=== PATIENT | female | born 1980 | race Caucasian/White ===

== ENCOUNTER 2020-10-29 15:21 | Inpatient (IN) | payer OTHER ==
[2020-10-29 17:54] VITALS: BMI 30.7
[2020-10-29] MEDS ORDERED: ACETAMINOPHEN 325 MG TABLET (FP) PO PRN ×2 (18:03)
[2020-10-29] MEDS ORDERED: IBUPROFEN 400 MG TABLET (FP) PO PRN (18:03)
[2020-10-29] MEDS ORDERED: LORazepam 1 MG TABLET PO PRN (18:03)
[2020-10-29] MEDS ORDERED: MAGNESIUM HYDROX 2400MG/30ML ORAL SUSPENSION 30 ML CUP PO PRN (18:03)
[2020-10-29] MEDS ORDERED: MENTHOL/PHENOL 1 EACH UD MM PRN (18:03)
[2020-10-29] MEDS ORDERED: MAG HYDROX/AL HYDROX/SIMETH 30 ML UNIT-DOSE CUP PO PRN (18:03)
[2020-10-29] MEDS ORDERED: MAGNESIUM CITRATE 300 ML BOTTLE PO PRN (18:03)
[2020-10-29] MEDS ORDERED: METHOCARBAMOL 500 MG TABLET PO PRN (18:03)
[2020-10-29] MEDS ORDERED: BISMUTH SUBSALICYLATE 524 MG/30 ML UD PO PRN (18:03)
[2020-10-29] MEDS ORDERED: hydrOXYzine PAMOATE 25 MG CAPSULE (FP) PO PRN (18:03)
[2020-10-29] MEDS ORDERED: NICOTINE POLACRILEX 4 MG GUM BUC PRN (18:03)
[2020-10-29] MEDS: ONDANSETRON *ODT* 4 MG TABLET SL PRN (19:09)
[2020-10-29] MEDS: NICOTINE 21 MG/24 HOURS TOPICAL PATCH TD SCH (19:14)
[2020-10-29] MEDS: PRENATAL VITAMINS W/ FOLIC ACID TABLET (FP) PO SCH (19:14)
[2020-10-29] MEDS: MELATONIN 5 MG TABLETS PO SCH (22:28)
[2020-10-29] MEDS: THIAMINE HCL 100 MG TABLET (FP) PO SCH (22:28)
[2020-10-29] MEDS: LORazepam 2 MG TABLET PO SCH (22:32)
[2020-10-30] MEDS: LORazepam 2 MG TABLET PO SCH ×4 (04:22→22:45)
[2020-10-30] MEDS: ONDANSETRON *ODT* 4 MG TABLET SL PRN ×2 (04:47→18:00)
[2020-10-30] MEDS: NICOTINE 21 MG/24 HOURS TOPICAL PATCH TD SCH (10:40)
[2020-10-30] MEDS: PRENATAL VITAMINS W/ FOLIC ACID TABLET (FP) PO SCH (10:40)
[2020-10-30] MEDS: GABAPENTIN 300 MG CAPSULE PO SCH ×2 (11:51→22:45)
[2020-10-30 13:41] LABS: POTASSIUM 3.6 mmol/L (3.5-5.1)
[2020-10-30 13:44] LABS: HEMATOCRIT 29.5 % (32.4-45.2); HEMOGLOBIN 9.2 GM/dL (10.7-15.3); MCH 24.5 pg (25.7-33.7); MEAN CELL VOLUME 79.1 fl (80-96); PLATELET COUNT 73 K/MM3 (134-434); RBC 3.73 M/mm3 (3.60-5.2); RDW 23.1 % (11.6-15.6); WHITE BLOOD COUNT 3.4 K/mm3 (4.0-10.0)
[2020-10-30 13:50] LABS: ALBUMIN 3.6 g/dl (3.4-5.0); BLOOD UREA NITROGEN 6.8 mg/dL (7-18); CALCIUM 8.7 mg/dL (8.5-10.1)
[2020-10-30 13:53] LABS: CREATININE 0.6 mg/dL (0.55-1.3)
[2020-10-30 13:54] LABS: BILIRUBIN,TOTAL 3.8 mg/dL (0.2-1); TOT PROT 7.8 g/dl (6.4-8.2)
[2020-10-30] MEDS: MELATONIN 5 MG TABLETS PO SCH (22:45)
[2020-10-30] MEDS: THIAMINE HCL 100 MG TABLET (FP) PO SCH (22:45)
[2020-10-31] MEDS: LORazepam 1 MG TABLET PO SCH ×2 (06:22→10:11)
[2020-10-31] MEDS: PRENATAL VITAMINS W/ FOLIC ACID TABLET (FP) PO SCH (10:10)
[2020-10-31] MEDS: GABAPENTIN 300 MG CAPSULE PO SCH (10:11)
[2020-10-31] MEDS: NICOTINE 21 MG/24 HOURS TOPICAL PATCH TD SCH (10:12)
[2020-10-31 11:18] LABS: POTASSIUM 3.6 mmol/L (3.5-5.1)
[2020-10-31 11:31] LABS: CALCIUM 9.1 mg/dL (8.5-10.1); HEMOGLOBIN 10.3 GM/dL (10.7-15.3); LYMPH % 17.5 % (8-40); MONO % 6.4 % (3.8-10.2)
[2020-10-31 11:32] LABS: ALBUMIN 3.9 g/dl (3.4-5.0); BLOOD UREA NITROGEN 8.8 mg/dL (7-18)
[2020-10-31 11:33] LABS: INR 1.65 (0.83-1.09); PROTHROMBIN TIME (PATIENT) 19.7 SEC (9.7-13.0)
[2020-10-31 11:35] LABS: BASO % 0.3 % (0-2.0); CREATININE 0.8 mg/dL (0.55-1.3); EOS % 0.6 % (0-4.5); HEMATOCRIT 32.4 % (32.4-45.2); MCHC 31.8 g/dl (32.0-36.0); MEAN CELL VOLUME 78.6 fl (80-96); MEAN PLT VOLUME 8.7 fl (7.5-11.1); NEUT % 75.2 % (42.8-82.8); PLATELET COUNT 71 K/MM3 (134-434); RBC 4.12 M/mm3 (3.60-5.2); RDW 23.8 % (11.6-15.6); WHITE BLOOD COUNT 3.6 K/mm3 (4.0-10.0)
[2020-10-31 11:36] LABS: BILIRUBIN,TOTAL 4.8 mg/dL (0.2-1)
[2020-10-31 11:37] LABS: TOT PROT 8.7 g/dl (6.4-8.2)
[2020-10-31] MEDS ORDERED: LACTULOSE 20 GM/30 ML UDC (FOR ORAL USE ONLY) PO ONE (12:37)
[2020-10-31 12:41] LABS: ANISOCYTOSIS 3+; MACROCYTOSIS 0; PLATELET ESTIMATE DECREASED; TARGET CELLS 2+; TEAR DROP CELLS 1+
[2020-10-31] MEDS ORDERED: FERROUS SO4 325 MG TABLET (FP) PO ONE (12:44)
[2020-10-31 13:46] VITALS: BP 132/94; PULSE 89; TEMP 96
[2020-10-31] MEDS ORDERED: LACTULOSE 20 GM/30 ML UDC (FOR ORAL USE ONLY) PO SCH (14:00)
[2020-10-31] MEDS ORDERED: FERROUS SO4 325 MG TABLET (FP) PO SCH (17:30)
[2020-11-01] MEDS ORDERED: LORazepam 0.5 MG TABLET PO PRN
[2020-11-01] MEDS ORDERED: LORazepam 0.5 MG TABLET PO SCH (05:00)
[2020-11-02] MEDS ORDERED: LORazepam 0.5 MG TABLET PO ONE (05:00)
== END 2020-10-31 15:33 | disposition left against medical advice (07) | DRG 770 ==
LOC: YASAS 15:21 → Y6N 17:41
PROVIDERS: ADMIT Allergy & Immunology; ATTEND Allergy & Immunology
PROC: HZ2ZZZZ Detoxification Services for Substance Abuse Treatment (ICD-10-PCS; principal; 2020-10-29)
DX: F10.230 Alcohol dependence with withdrawal, uncomplicated (principal); F17.210 Nicotine dependence, cigarettes, uncomplicated; D61.818 Other pancytopenia; M51.36 Other intervertebral disc degeneration, lumbar region; M54.5 Low back pain; G89.29 Other chronic pain; R79.89 Other specified abnormal findings of blood chemistry
CPT/HCPCS: 36415; 80053; 81025; 82140; 85025; 85027; 85610; 86780; 93005; 93010; C9803; Q0162; U0003